=== PATIENT | female | born 1995 | race Hispanic/Latino ===

== ENCOUNTER 2022-04-30 18:06 | Emergency (ER) | payer SELFPAY ==
[2022-04-30 18:54] LABS: #Basophils 0.1 thou/uL (0.0-0.2); #Eosinphils 0.2 thou/uL (0.0-0.7); #Lymphocytes 2.9 thou/uL (1.20-3.40); #Monocytes 0.9 thou/uL (0.11-0.59); #Neutrophils 7.3 thou/uL (1.40-6.50); %Basophils 0.7 % (0.0-1.0); %Eosinophils 1.8 % (0.0-10.0); %Lymphocytes 25.6 % (21.0-51.0); %Monocytes 7.7 % (0.0-10.0); %Neutrophils 64.2 % (42.0-75.0); Hemoglobin 13.9 g/dL (12.0-16.0); Mean Corpuscular HGB CONC 33.1 g/dL (32.0-36.0); Mean Corpuscular Hemoglobin 30.8 pg (27.0-31.0); Mean Platelet Volume 8.7 fL (7.4-10.4); Platelet Count 412 10x3/uL (130-400); RBC Distribution Width 13.1 % (11.5-14.5); Red Blood Cell (RBC) Count 4.51 mill/uL (4.20-5.40); White Blood Cell (WBC) Count 11.4 10x3/uL (4.8-10.8)
[2022-04-30 19:22] LABS: ALT (SGPT) 19 U/L (8-55); AST (SGOT) 15 U/L (5-34); Alkaline Phosphatase 81 U/L (40-110); Anion Gap 11 mmol/L (10-20); BUN (Urea Nitrogen) 8 mg/dL (7.0-18.7); Bilirubin, Total 0.2 mg/dL (0.2-1.2); Calc. Creatinine Clearance 0 mL/min (70-130); Calcium 8.9 mg/dL (7.8-10.44); Carbon Dioxide 24 mmol/L (22-29); Chloride 108 mmol/L (98-107); Estimated GFR 124; Globulin 3.2 g/dL (2.4-3.5); Glucose 93 mg/dL (70-105); Potassium 3.9 mmol/L (3.5-5.1); Protein, Total 7.2 g/dL (6.0-8.3); Sodium 139 mmol/L (136-145)
== END 2022-04-30 23:00 | disposition home or self-care (01) ==
LOC: ERS 18:06
DX: R07.9 Chest pain, unspecified (principal); R51.9 Headache, unspecified; F17.290 Nicotine dependence, other tobacco product, uncomplicated
CPT/HCPCS: 36415; 71045; 80053; 84484; 85025; 93005

== ENCOUNTER 2022-05-10 15:44 | Emergency (ER) | payer SELFPAY ==
[2022-05-10] MEDS ORDERED: Ibuprofen 200 MG TAB ONE (18:04)
[2022-05-10] MEDS ORDERED: Acetaminophen 500 MG TAB ONE (18:04)
== END 2022-05-10 18:34 | disposition home or self-care (01) ==
LOC: ERS 15:44
DX: M25.532 Pain in left wrist (principal); M79.642 Pain in left hand; F17.290 Nicotine dependence, other tobacco product, uncomplicated
CPT/HCPCS: 29125

== ENCOUNTER 2023-11-29 13:01 | Emergency (ER) | payer OTHER, SELFPAY ==
[2023-11-29] MEDS ORDERED: Diazepam 5 MG TAB ONE (14:49)
[2023-11-29] MEDS ORDERED: traMADol HCl 50 MG TAB ONE (15:02)
[2023-11-29] MEDS ORDERED: Lidocaine 1% w/Epinephrine 1:100K 20 ML VIAL ONE (15:49)
== END 2023-11-29 16:27 | disposition home or self-care (01) ==
LOC: ERS 13:01
DX: L02.31 Cutaneous abscess of buttock (principal); Z87.891 Personal history of nicotine dependence
CPT/HCPCS: 10060

== ENCOUNTER 2024-04-01 09:01 | Outpatient (CLI) | payer OTHER | END 2024-04-01 09:02 | disposition home or self-care (01) | LOC: ULT 09:01 | PROVIDERS: ATTEND Nurse Practitioner Family | DX: N91.1 Secondary amenorrhea (principal); R93.89 Abnormal findings on diagnostic imaging of other specified body structures | CPT/HCPCS: 76856 ==